=== PATIENT | male | born 1945 | race Caucasian/White ===

== ENCOUNTER → 2018-11-19 | Outpatient (CLI) | payer MEDICARE, BC ==
--- NOTE | 2018-11-19 15:20 | RAD ---
EXAM DESCRIPTION: Shoulder,Right 2 or More Views CLINICAL HISTORY: 73 years Male, ROTATOR SUFF TEAR. COMPARISON: None available. FINDINGS: The visualized bones are well-mineralized.No acute fracture or dislocation. The soft tissues appear grossly unremarkable. Moderate degenerative changes are identified in the acromioclavicular joint. IMPRESSION: Moderate right acromioclavicular joint osteoarthritis. Electronically signed by: Elicia Glover MD 11/19/2018 3:19 PM [facility]
--- NOTE | 2018-11-20 08:02 | MRI ---
EXAM DESCRIPTION: MRI right shoulder CLINICAL HISTORY: Rotator cuff tear. Shoulder pain COMPARISON: None. TECHNIQUE: Multiplanar, multisequence MR images of the right shoulder FINDINGS: Biceps tendon normal in the bicipital groove and intra-articular. Labral anchor and superior labrum intact. Large cyst along the posterior glenoid rim and neck, likely secondary to an otherwise subtle, not well visualized posterior labral tear. Paralabral cyst along the posterior superior and posterior glenoid rim and neck. The cyst measures up to 3.3 cm craniocaudal by 3.1 cm mediolateral by 1.4 cm anteroposterior. Complex multiloculated cyst . Surrounding soft tissue edema. No evidence of nerve impingement or denervation injury to the supraspinatus and infraspinatus muscles. A small portion of the cyst is in the suprascapular notch and the majority along the spinoglenoid notch/posterior glenoid neck and body. No other labral detachment. No high-grade glenohumeral chondrosis or chronic osteochondral lesion Full-thickness tear of the anterior supraspinatus insertion spanning 9 mm anteroposterior. Delamination and partial retraction about 10 mm. Muscle volume is mildly decreased with grade 1 fatty infiltration Infraspinatus, teres minor and subscapularis tendons are intact. Mild muscle volume loss and grade 1 fatty infiltration. Moderate acromioclavicular osteoarthritis with prominent periarticular osteophytes. Subacromial enthesophyte and large contiguous inferior lateral acromial spur with lateral downsloping of the acromion IMPRESSION: Large posterior paralabral cyst, extending from the suprascapular notch, along the spinoglenoid notch and posterior glenoid Full-thickness insertional tear of the anterior supraspinatus Electronically signed by: Hayes Stephenson MD 11/20/2018 8:01 AM [facility]
== END ==
LOC: MRI 14:11
DX: M75.101 Unspecified rotator cuff tear or rupture of right shoulder, not specified as traumatic (principal); M19.011 Primary osteoarthritis, right shoulder; M71.311 Other bursal cyst, right shoulder